=== PATIENT | female | born 1995 | race Caucasian/White ===

== ENCOUNTER 2017-12-05 16:23 | Emergency (ER) | payer SELFPAY ==
[~2017-12-05] VITALS: Ht 162.6 cm; Wt 96.4 kg
[2017-12-05 16:25] VITALS: TEMP 99.1
[2017-12-05 16:54] LABS: COLLECTION METHOD CATHETER
[2017-12-05 17:02] LABS: MUCOUS Present /lpf; PH 5 (5-8); SQUAMOUS EPITHELIAL 0-2 /hpf; URINE APPEARANCE Clear; URINE BACTERIA None Seen /hpf; URINE BILIRUBIN Negative (NEGATIVE); URINE BLOOD 3+ (NEGATIVE); URINE COLOR Yellow; URINE GLUCOSE Negative (NEGATIVE); URINE KETONE Negative (NEGATIVE); URINE LEUKOCYTE ESTERASE Negative (NEGATIVE); URINE NITRATE Negative (NEGATIVE); URINE PROTEIN(semi-quant) 1+ (NEGATIVE); URINE RBC >50 /hpf; URINE UROBILINOGEN Negative (NEGATIVE)
[2017-12-05 17:07] LABS: BASO % 0.4 % (0.0-2.0); EOS # 0.1 (0.0-0.7); EOS % 1.3 % (0-4.0); GRAN # 3.4 (1.4-6.5); GRAN % 48.7 % (42.2-75.2); HEMOGLOBIN 10.6 g/dl (12.5-16.0); LYMPH % 42.8 % (20.0-51.0); MEAN CELL VOLUME 82 fl (80.0-100.0); MEAN CORPUSCULAR HEMOGLOBIN 26 pg (27.0-31.0); MEAN CORPUSCULAR HGB CONC 32 g/dl (33.0-37.0); MEAN PLATELET VOLUME 10.1 fl (7.4-10.4); MONO # 0.4 (0.1-0.6); MONO % 6.4 % (1.7-9.3); PLATELET COUNT 291 K/mm3 (130-400); REDCELL DISTRIBUTION WIDTH-CV 14.2 % (11.5-14.5)
[2017-12-05 17:08] LABS: HEMATOCRIT 33.6 % (37.0-47.0)
[2017-12-05 17:12] LABS: INR 1.1 (0.8-3.0)
[2017-12-05 17:15] LABS: PARTIAL THROMBOPLASTIN TIME 33.3 SECONDS (26.0-37.0)
[2017-12-05 17:16] LABS: CALCIUM 9.5 mg/dL (8.4-10.2); CREATININE, serum 0.79 mg/dL (0.52-1.25); POTASSIUM 3.9 mmol/L (3.4-5.0)
[2017-12-05 18:00] VITALS: BP 113/57; PULSE 74
== END 2017-12-05 18:15 | disposition home or self-care (01) ==
LOC: COL.ER 16:23
PROVIDERS: Emergency Medicine
DX: N93.9 Abnormal uterine and vaginal bleeding, unspecified (principal); R10.30 Lower abdominal pain, unspecified
CPT/HCPCS: J7030